=== PATIENT | female | born 1990 | race Hispanic/Latino ===

== ENCOUNTER 2017-04-11 14:09 | Emergency (ER) | payer BC, OTHER ==
[2017-04-11] MEDS ORDERED: Dexamethasone 4 mg/ml Vial ONE (14:23)
[2017-04-11] MEDS ORDERED: AMOXicillin 250 MG CAP ONE (14:25)
== END 2017-04-11 14:48 | disposition home or self-care (01) ==
LOC: BURERS 14:09
DX: H66.92 Otitis media, unspecified, left ear (principal); I10 Essential (primary) hypertension
CPT/HCPCS: 99282; J1100

== ENCOUNTER 2018-02-22 13:34 | Outpatient (CLI) | payer BC ==
--- NOTE | 2018-02-22 14:13 | RAD ---
THREE VIEWS LEFT ANKLE: History: Left lateral ankle pain after tripping and twisting ankle. FINDINGS: Three views of the left ankle shows moderate diffuse soft tissue swelling. There may be a small avuls ion fracture fragment adjacent to the tip of the lateral malleolus. No other fracture or dislocation are seen. IMPRESSION: Possible small avulsion fracture along the tip of the lateral malleolus. POS: [facility]
== END 2018-02-22 13:35 | disposition home or self-care (01) ==
LOC: BURRAD 13:34
PROVIDERS: ATTEND Family Medicine
DX: M25.572 Pain in left ankle and joints of left foot (principal)

== ENCOUNTER 2024-06-01 17:32 | Outpatient (CLI) | payer BC | END 2024-06-01 17:33 | disposition home or self-care (01) | LOC: BURRAD 17:32 | PROVIDERS: ATTEND Family Medicine | DX: Z11.1 Encounter for screening for respiratory tuberculosis (principal) | CPT/HCPCS: 71046 ==